=== PATIENT | male | born 1980 | race Caucasian/White ===

== ENCOUNTER 2020-11-26 09:25 | Emergency (ER) | payer MEDICAID ==
[~2020-11-26] VITALS: Ht 185.4 cm; Wt 96.0 kg
[2020-11-26 09:37] VITALS: BP 131/80
--- NOTE | 2020-11-26 10:30 | NUR ---
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
--- NOTE | 2020-11-26 10:35 | NUR ---
Pt awaiting MD exam.
[2020-11-26] MEDS ORDERED: abilify PO (11:00)
[2020-11-26] MEDS ORDERED: lamictal PO (11:00)
== END 2020-11-26 11:30 | disposition home or self-care (01) ==
LOC: ED 11:22
DX: K52.9 Noninfective gastroenteritis and colitis, unspecified (principal); R00.0 Tachycardia, unspecified
CPT/HCPCS: 99281; 99282